=== PATIENT | male | born 1960 | race Caucasian/White ===

== ENCOUNTER → 2019-04-09 | Outpatient (CLI) | payer OTHER ==
--- NOTE | 2019-04-09 15:59 | RAD ---
Bilateral Leg Venous Doppler Ultrasound, 04/09/2019 Indication: Pain and swelling both lower extremities Comparison: None available Procedure: Real-time grayscale, color flow color duplex Doppler and spectral analysis are obtained with and without compression in the area of the common femoral vein, superficial femoral vein - femoral vein junction, main femoral vein (superficial femoral vein) and popliteal vein. Veins of the proximal calf are also imaged. Findings: There is occlusive clot in the left mid to distal superficial femoral vein extending into the left popliteal vein. The remainder left lower extremity deep venous structures appear patent and compressible. There is normal duplex flow, color flow and compressibility of all visualized vein segments of the right lower extremity. No evidence of deep venous thrombus is present. Impression: Occlusive thrombus left superficial femoral and popliteal vein consistent with DVT. No DVT seen on the right. The technologist gave the preliminary result to the referring physician. Electronically signed by: Megan Gregorio MD (04/09/2019 3:56 PM) [facility] [place]
== END | disposition home or self-care (01) ==
LOC: US 15:19
PROVIDERS: ATTEND Internal Medicine
DX: I82.812 Embolism and thrombosis of superficial veins of left lower extremity (principal); I82.432 Acute embolism and thrombosis of left popliteal vein
CPT/HCPCS: 93970